=== PATIENT | female | born 1935 | race Caucasian/White ===

== ENCOUNTER → 2016-10-01 | Outpatient (CLI) | payer MEDICARE, BC ==
[~2016-10-01] MED LIST: CELE200C PO; EZET10TA3 PO; PRAV40TA76 PO; TRAM50TA2 PO; TRAZ100T15 PO; [UNRECOGNIZED DRUG - CODE] PO
--- NOTE | 2016-10-01 19:43 | RADRPT ---
PROCEDURE: XR LEFT HIP. CLINICAL INDICATION: Left hip pain TECHNIQUE: 3 views of the left hip were performed. COMPARISON: 01/30/2016. FINDINGS: There is marked superior joint space narrowing of the left hip joint consistent with moderate degene rative arthrosis. There is mild marginal spurring and subcortical sclerosis of the acetabulum super iorly. The bones are osteopenic. No evidence for fracture. No evidence for bone destructive or er osive change. There is a stable and appropriate appearing right total hip arthroplasty in place. IMPRESSION: 1. Moderate left hip degenerative arthrosis. No significant change since 01/30/2016. 2. Stable and appropriate appearing right total hip arthroplasty. 3. Osteopenia. No acute fracture is seen. RPTAT: XX .Wilton Berger MD, Date Time Electronically viewed and signed by .Wilton Berger MD, on 10/01/2016 19:43 .T/
== END | disposition home or self-care (01) ==
LOC: HKI 10:29
PROVIDERS: ATTEND Orthopaedic Surgery
DX: M25.552 Pain in left hip (principal); M16.12 Unilateral primary osteoarthritis, left hip; M51.36 Other intervertebral disc degeneration, lumbar region; M54.5 Low back pain; M54.16 Radiculopathy, lumbar region; Z96.641 Presence of right artificial hip joint; Z96.653 Presence of artificial knee joint, bilateral
CPT/HCPCS: 73502; G0463